=== PATIENT | female | born 1960 | race Hispanic/Latino ===

== ENCOUNTER 2020-12-16 15:49 | Emergency (ER) | payer MEDICARE ==
[2020-12-16] MEDS ORDERED: Lorazepam 2 MG/ML VIAL ONE (16:42)
[2020-12-17 13:32] LABS: SARS-CoV-2 PCR by NAA Not Detected (NotDetected)
== END 2020-12-16 17:12 | disposition home or self-care (01) ==
LOC: BURERS 15:49
DX: R06.4 Hyperventilation (principal); R06.02 Shortness of breath; R20.2 Paresthesia of skin; E11.9 Type 2 diabetes mellitus without complications; Z20.822 Contact with and (suspected) exposure to COVID-19
CPT/HCPCS: U0003; U0005; 96372; 99284; J2060